=== PATIENT | male | born 1990 | race Caucasian/White ===

== ENCOUNTER → 2024-03-02 | Outpatient (CLI) | payer OTHER ==
[2024-03-03 07:06] LABS: RUBELLA AB IGG-REFLAB 1.79 index (Immune >0.99); RUBEOLA (MEASLES) IGG 49.4 AU/mL (Immune >16.4); VARICELLA ZOSTER IGG AB TITER Reactive (Non Reactive)
== END | disposition home or self-care (01) ==
LOC: LABMN 14:32
PROVIDERS: ATTEND Internal Medicine
DX: Z02.1 Encounter for pre-employment examination (principal)
CPT/HCPCS: 86706; 86735; 86762; 86765; 86787; 87340

== ENCOUNTER 2024-07-20 19:03 | Emergency (ER) | payer OTHER ==
[~2024-07-20] VITALS: Ht 180.3 cm; Wt 72.7 kg
[2024-07-20 23:43] VITALS: BP 128/76; PULSE 68; RESP 16; TEMP 98.1; O2SAT 100
[2024-07-21] MEDS: ERYTHROMYCIN 0.5% 3.5 GM TUBE OPHTHALMIC OINTMENT OS ONE (01:06)
[2024-07-21] MEDS: ACETAMINOPHEN 500 MG TABLET PO ONE (01:07)
[2024-07-21] MEDS: GENTAMICIN SULFATE 0.3% OPHTHALMIC SOLUTION 5 ML OS ONE (01:07)
== END 2024-07-21 01:09 | disposition home or self-care (01) ==
LOC: EMS 19:03
DX: H10.9 Unspecified conjunctivitis (principal); Z88.0 Allergy status to penicillin
CPT/HCPCS: 99283; 99284